=== PATIENT | male | born 1980 | race African-American/Black ===

== ENCOUNTER 2022-10-07 22:50 | Emergency (ER) | payer OTHER, SELFPAY ==
[2022-10-07 23:15] VITALS: BP 146/97; PULSE 73; RESP 16; TEMP 36.7; O2SAT 100
--- NOTE | 2022-10-08 02:00 | ED.SKABFB ---
HPI - Skin/Abscess/Foreign Bdy General Chief complaint: Skin/Abscess/Foreign Body Stated complaint: blisters to lip Time Seen by Provider: 10/08/22 00:57 Source: patient Mode of arrival: ambulatory Limitations: no limitations History of Present Illness HPI narrative: Patient is a 41-year-old male who presents the ED with report of skin lesion to his right forehead. Patient reports he first noticed the lesion 2 days ago after sleeping in a local hotel. Patient is a parcel post truck driver. He notes he also received a haircut from a local tate. He states he noticed the skin felt dry and somewhat scaly, slightly tender to palpation. He has not tried anything for the symptoms. Within the last few hours today, patient also noticed 2 small bumps to his lower lip. He denies any concern for STDs. He denies any pain, tingling associated with or prior to the lesions on his lip. Denies any history of herpes. Denies any fevers, nausea, vomiting, head injury. Denies any lesions elsewhere. Related Data Allergies Allergy/AdvReac Type Severity Reaction Status Date / Time No Known Allergies Allergy Verified 10/08/22 01:56 Review of Systems Review of Systems: CONSTITUTIONAL: Denies fever, chills, or sweats. CARDIOVASCULAR: Denies chest pain. RESPIRATORY: Denies dyspnea. GASTROINTESTINAL: Denies abdominal pain, nausea, vomiting. SKIN: See HPI. MUSCULOSKELETAL: Denies back pain, joint pain, or myalgia. NEUROLOGIC: See HPI. All systems reviewed & are unremarkable except as noted in HPI and below PMFSH Past Medical History Medical History (Updated 10/08/22 @ 03:37 by Tamiko Paul PA-C) No pertinent past medical history Surgical History Surgical History (Updated 10/08/22 @ 03:37 by Tamiko Paul PA-C) No pertinent past surgical history Social History Social History (Updated 10/08/22 @ 03:38 by Tamiko Paul PA-C) Smoking status: Never smoker Exam Narrative: GENERAL: Well appearing, well-nourished, non-toxic, in no acute distress. HEAD: Normocephalic, atraumatic. Small circular area of skin irritation, mild swelling, dry flaking skin to right temporal region of scalp. No pustules, drainage, warmth. ENT: 2 small papules to lower lip ben border. No pustules, clustered vesicles. No erythema. No tenderness. Several small short hairs noted along ben border. MMs moist. No inner mucosal lesions. NECK: Supple. No adenopathy, no masses. RESPIRATORY: Airway patent, respirations nonlabored. CARDIOVASCULAR: Regular rate and rhythm without murmurs, rubs, or gallops. Radial pulses 2+ and equal bilaterally. MUSCULOSKELETAL: Moves all extremities. Strength/ROM intact without gross deformities. SKIN: Warm, dry, normal color. No rashes. NEURO: A&O X3. Speech clear. Cranial nerves II-XII grossly intact. Steady gait. No ataxic movements. PSYCHIATRIC: Appropriate mood and affect. Normal interaction. Course Vital Signs Vital signs: Vital Signs Temperature 98.0 F 10/07/22 23:15 Pulse Rate 73 10/07/22 23:15 Respiratory Rate 16 10/07/22 23:15 Blood Pressure 146/97 H 10/07/22 23:15 Pulse Oximetry 100 10/07/22 23:15 Oxygen Delivery Room Air 10/07/22 23:15 Temperature 98.0 F 10/07/22 23:15 Pulse Rate 78 10/08/22 02:03 Respiratory Rate 20 10/08/22 02:03 Blood Pressure 138/78 10/08/22 02:03 Pulse Oximetry 99 10/08/22 02:03 Oxygen Delivery Room Air 10/07/22 23:15 MDM - Skin/Abscess/Foreign Bdy MDM Narrative Medical decision making narrative: Patient presented to ED with 2-day history of skin lesion to right temporal scalp, now having small papules to lower lip. Lower lip lesions appear consistent with folliculitis as patient does have several short perez hairs that edge up right to the vermilion border. Patient did just recently have his hair cut. There are no clustered vesicles, no pain, tenderness, tingling noted to the lesions. Patient is not currently sexually active
[2022-10-08 02:03] VITALS: BP 138/78; PULSE 78; RESP 20; O2SAT 99
== END 2022-10-08 02:37 | disposition home or self-care (01) ==
PROVIDERS: Emergency Provider Physician Assistant
DX: L73.9 Follicular disorder, unspecified (principal); L24.9 Irritant contact dermatitis, unspecified cause
CPT/HCPCS: 99283